=== PATIENT | female | born 1965 | race Two or more races ===

== ENCOUNTER 2018-02-25 13:15 | Emergency (ER) | payer OTHER ==
[~2018-02-25] VITALS: Ht 160 cm; Wt 84.4 kg
--- NOTE | 2018-02-25 13:36 | NUR ---
Kerry palm in ED - 02/25/18 at 1509 by SHYANN RIN ERAZO AT BEDSIDE FOR EVAL.
[2018-02-25] MEDS ORDERED: DIAZEPAM 10 MG TABLET ONE (13:43)
[2018-02-25] MEDS ORDERED: KETOROLAC TROMETHAMINE INJ 60 MG/2 ML VIAL IM ONE ×2 (13:43→14:00)
--- NOTE | 2018-02-25 13:53 | NUR ---
BACK PAIN SINCE YESTERDAY, STARTED AFTER TRANSFERRING A PATIENT. PT AAOX3, VSS. DENIES CP, SOB, N/V, LEG PAIN @ THIS TIME. PT SEEN & EVAL'D BY KACEY GAR. MEDICATED FOR PAIN, PT BRITTANY WELL. WILL CONT TO MONITOR.
[2018-02-25] MEDS ORDERED: DIAZEPAM 10 MG TABLET PO ONE (14:00)
--- NOTE | 2018-02-25 15:09 | NUR ---
Patient discharged to home in stable condition. Written and verbal after care instructions given. Patient verbalizes understanding of instruction.
[2018-02-25 15:10] VITALS: BP 152/87
== END 2018-02-25 15:11 | disposition home or self-care (01) ==
LOC: ER 13:18
DX: M54.5 Low back pain (principal); F17.200 Nicotine dependence, unspecified, uncomplicated; Z90.89 Acquired absence of other organs; Z60.2 Problems related to living alone
CPT/HCPCS: 72110; 96372; 99284; J1885; A4606; Z7610

== ENCOUNTER 2023-05-06 12:08 | Emergency (ER) | payer OTHER ==
[~2023-05-06] VITALS: Ht 165.1 cm; Wt 70.3 kg
[2023-05-06 12:28] VITALS: BP 135/85; TEMP 97.9; O2SAT 98
[2023-05-06] MEDS ORDERED: HYDROCODONE/APAP 5/325MG TABLET ONE (14:46)
[2023-05-06] MEDS ORDERED: IBUPROFEN 600 MG TABLET ONE (14:47)
[2023-05-06] MEDS ORDERED: CEPHALEXIN MONOHYDRATE 500 MG CAPSULE PO ONE ×2 (14:47→15:00)
[2023-05-06] MEDS ORDERED: TDAP [DIPH/PERTUSSIS/TET] 0.5 ML VIAL IM ONE ×2 (14:47→15:00)
[2023-05-06] MEDS ORDERED: IBUPROFEN 600 MG TABLET PO ONE (15:00)
[2023-05-06] MEDS ORDERED: HYDROCODONE/APAP 5/325MG TABLET PO ONE (15:00)
[2023-05-06] MEDS ORDERED: IBUP-1953 PO (15:47)
[2023-05-06] MEDS ORDERED: CEPH500C2 PO (15:47)
== END 2023-05-06 15:55 | disposition home or self-care (01) ==
LOC: ER 12:37
DX: S69.81XA Other specified injuries of right wrist, hand and finger(s), initial encounter (principal); F17.200 Nicotine dependence, unspecified, uncomplicated; Z90.49 Acquired absence of other specified parts of digestive tract; Z60.2 Problems related to living alone; X58.XXXA Exposure to other specified factors, initial encounter; Y93.89 Activity, other specified; Y92.89 Other specified places as the place of occurrence of the external cause; Y99.8 Other external cause status
CPT/HCPCS: 73140-TC; 90715